=== PATIENT | female | born 1975 | race Caucasian/White ===

== ENCOUNTER 2022-03-31 14:31 | Emergency (ER) | payer SELFPAY ==
[~2022-03-31] VITALS: Ht 160 cm; Wt 90.0 kg
[2022-03-31] MEDS ORDERED: ACET-2708 MT (16:51)
[2022-03-31 17:05] VITALS: BP 125/57
== END 2022-03-31 17:06 | disposition home or self-care (01) ==
LOC: ER 14:31
DX: M25.522 Pain in left elbow (principal); R07.89 Other chest pain; V43.52XA Car driver injured in collision with other type car in traffic accident, initial encounter; Y93.89 Activity, other specified; Y92.488 Other paved roadways as the place of occurrence of the external cause
CPT/HCPCS: 71045; 73070; 99284